=== PATIENT | male | born 1980 | race Caucasian/White ===

== ENCOUNTER 2021-03-11 20:00 | Emergency (ER) | payer BC ==
[2021-03-11] MEDS ORDERED: Ondansetron 4 MG Tab.DIS PO ONE (20:10)
== END 2021-03-11 21:40 | disposition home or self-care (01) ==
LOC: CC.ED 20:00
DX: S06.0X0A Concussion without loss of consciousness, initial encounter (principal); F17.210 Nicotine dependence, cigarettes, uncomplicated; W01.0XXA Fall on same level from slipping, tripping and stumbling without subsequent striking against object, initial encounter
CPT/HCPCS: 70450; 99283-25; A9270-GY

== ENCOUNTER 2021-07-28 17:30 | Observation (INO) | payer BC ==
[2021-07-28] MEDS ORDERED: Diphtheria,Pertussis(Acell),Tetanus Vaccine 0.5 ML Syringe IM ONE (18:00)
[2021-07-28] MEDS ORDERED: Lidocaine 1% 5 ML VIAL INJECT ONE (18:07)
[2021-07-28] MEDS ORDERED: Sodium Chloride 0.9% 10 ML Syringe FLUSH PRN (22:08)
[2021-07-28] MEDS ORDERED: Ondansetron 4 MG Tab.DIS PO PRN (22:08)
[2021-07-28] MEDS ORDERED: Ondansetron 4 MG/2 ML SDV IV PRN (22:08)
[2021-07-28] MEDS: traMADol 50 MG Tab PO PRN (22:25)
[2021-07-29] MEDS: traMADol 50 MG Tab PO PRN (08:49)
[2021-07-29] MEDS: Hydrocortisone Sodium Succinate 100 MG/2 ML SDV ONE ×2 (08:50→09:02)
[2021-07-29] MEDS: diphenhydrAMINE 50 MG/ML SDV ONE ×2 (08:50→09:02)
[2021-07-29] MEDS ORDERED: Hydrocortisone Sodium Succinate 100 MG/2 ML SDV IVPUSH ONE (09:00)
[2021-07-29] MEDS ORDERED: diphenhydrAMINE 50 MG/ML SDV IV ONE (09:00)
[2021-07-29] MEDS ORDERED: Iopamidol 755 Mg/ML 100 ML Bottle IVPUSH ONE (09:37)
[2021-07-29] MEDS ORDERED: Hydrocortisone Sodium Succinate 100 MG/2 ML SDV IV SCH (12:30)
== END 2021-07-29 11:58 | disposition home or self-care (01) ==
LOC: CC.ED 17:30 → UNDOADMOB 19:15 → CC.MS 19:15
PROVIDERS: ADMIT Nurse Practitioner Family; ATTEND Nurse Practitioner Family
DX: S02.119A Unspecified fracture of occiput, initial encounter for closed fracture (principal); S02.0XXA Fracture of vault of skull, initial encounter for closed fracture; S06.0X9A Concussion with loss of consciousness of unspecified duration, initial encounter; F17.210 Nicotine dependence, cigarettes, uncomplicated; Z91.041 Radiographic dye allergy status; Z98.890 Other specified postprocedural states; Z88.8 Allergy status to other drugs, medicaments and biological substances
CPT/HCPCS: 64450; 70450; 70496; 90471; 90715; 96374; 96375; 99217; 99220; 99285-25; A9270-GY; G0378; J1200; J1720; Q9967

== ENCOUNTER 2022-10-23 02:02 | Emergency (ER) | payer OTHER, BC ==
[2022-10-23] MEDS ORDERED: Sodium Chloride 0.9% 1,000 ML IV ONE (02:21)
[2022-10-23] MEDS ORDERED: fentaNYL 100 MCG/2 ML SDV IV ONE ×2 (02:29→03:50)
[2022-10-23 03:33] LABS: BASOPHILS ABSOLUTE AUTO 0.01 10^3/uL (0.00-0.50); BASOPHILS PERCENT AUTO 0.1 % (0-1); EOSINOPHILS ABSOLUTE AUTO 0.04 10^3/uL (0.00-1.50); EOSINOPHILS PERCENT AUTO 0.3 % (0-6); HEMATOCRIT 39.3 % (42.0-52.0); HEMOGLOBIN 13.5 g/dL (14.0-18.0); IMMATURE GRAN ABSOLUTE AUTO 0.09 10^3/uL (0.00-0.49); IMMATURE GRAN PERCENT AUTO 0.6 % (0.0-4.9); LYMPHOCYTES ABSOLUTE AUTO 1.08 10^3/uL (0.60-5.00); LYMPHOCYTES PERCENT AUTO 7.6 % (24-44); MEAN CORPUSCULAR HEMOGLOBIN 28.6 pg (27.0-32.0); MEAN CORPUSCULAR HGB CONC 34.4 g/dL (32.0-36.0); MEAN CORPUSCULAR VOLUME 83.3 fL (83.0-97.0); MONOCYTES ABSOLUTE AUTO 1.11 10^3/uL (0.00-1.50); MONOCYTES PERCENT AUTO 7.8 % (0-10); NEUTROPHILS ABSOLUTE AUTO 11.95 x10^3/uL (1.80-8.00); NEUTROPHILS PERCENT AUTO 83.6 % (41-71); PLATELET COUNT,PLT 244 10^3/uL (150-400); RED BLOOD CELL COUNT 4.72 x10^6/uL (4.50-6.00); WHITE BLOOD CELL COUNT,WBC 14.3 10^3/uL (4.0-11.0)
[2022-10-23 03:40] LABS: ALBUMIN 3.8 g/dL (3.4-5.0); BILIRUBIN TOTAL 0.1 mg/dL (0.0-1.0); CALCIUM 8.4 mg/dL (8.4-10.1); CREATININE 1.2 mg/dL (0.7-1.3); EST CRCL DRUG DOSING (CG) 74.97 mL/min; POTASSIUM,K 3.7 mEq/L (3.5-5.0); PROTEIN TOTAL,TP 7.4 g/dL (6.4-8.2)
[2022-10-23] MEDS ORDERED: fentaNYL 50 MCG/ML SDV IVPUSH STA (04:26)
[2022-10-23] MEDS ORDERED: Sodium Chloride 0.9% 1,000 ML IV SCH (05:00)
== END 2022-10-23 05:10 ==
LOC: CC.ED 02:02
DX: S32.022A Unstable burst fracture of second lumbar vertebra, initial encounter for closed fracture (principal); Z88.1 Allergy status to other antibiotic agents; Z91.041 Radiographic dye allergy status; Y92.410 Unspecified street and highway as the place of occurrence of the external cause; F10.129 Alcohol abuse with intoxication, unspecified; V89.2XXA Person injured in unspecified motor-vehicle accident, traffic, initial encounter
CPT/HCPCS: 36415; 70450; 71045; 72125; 72131; 73030-RT; 80053; 80307; 85025; 96374; 96376; 99284; 99285-25; J3010; J7030